=== PATIENT | female | born 1995 | race Caucasian/White ===

== ENCOUNTER → 2016-11-18 | Outpatient (REF) | LOC: WSOH 13:54 → EDBD 13:54 | DX: Z02.1 Encounter for pre-employment examination (principal) ==

== ENCOUNTER → 2016-11-20 | Outpatient (REF) | LOC: WSOH 14:46 | DX: Z02.89 Encounter for other administrative examinations (principal) ==

== ENCOUNTER → 2016-11-20 | Outpatient (REF) | LOC: EDBD 10:45 → WSPT 10:45 | DX: Z02.89 Encounter for other administrative examinations (principal) ==

== ENCOUNTER → 2016-11-20 | Outpatient (REF) | LOC: WSOH 11:19 | DX: Z23 Encounter for immunization (principal) ==

== ENCOUNTER → 2017-01-22 | Outpatient (REF) | LOC: WSOH 13:44 | DX: Z01.84 Encounter for antibody response examination (principal) ==